=== PATIENT | female | born 1975 | race Caucasian/White ===

== ENCOUNTER 2021-01-23 04:48 | Emergency (ER) | payer OTHER ==
[~2021-01-23 04:48] MED LIST: CLEOCIN HCL300 MG PO; IBUPROFEN600 MG PO; Viscous lidocaine2% TOP
[2021-01-23 07:44] LABS: BUN/CREATININE RATIO 16 (0-10)
== END 2021-01-23 20:08 | disposition home or self-care (01) ==
LOC: ER1 04:48
PROVIDERS: Family Medicine; Internal Medicine
DX: T43.621A Poisoning by amphetamines, accidental (unintentional), initial encounter (principal); T40.601A Poisoning by unspecified narcotics, accidental (unintentional), initial encounter; F17.210 Nicotine dependence, cigarettes, uncomplicated
CPT/HCPCS: 51701; 80053; 80307; 93005; 96374; 99284; G0480; J2310; J7030